=== PATIENT | female | born 2000 | race Hispanic/Latino ===

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

== ENCOUNTER 2022-01-30 22:54 | Emergency (ER) | payer BC, OTHER ==
[~2022-01-30] VITALS: Ht 154.9 cm; Wt 47.2 kg
[2022-01-31 01:18] LABS: BASOPHILS % (AUTO) 0.3 % (0.0-5.0); EOSINOPHILS % (AUTO) 0.9 % (0.0-8.0); HEMATOCRIT 40.3 % (36-48); LYMPHOCYTES % (AUTO) 36.2 % (21.0-51.0); MEAN CORPUSCULAR HEMOGLOBIN 31.3 pg (27.0-33.0); MEAN CORPUSCULAR VOLUME 89.4 fL (80-100); MONOCYTES % (AUTO) 8.9 % (3.0-13.0); NEUTROPHILS % (AUTO) 53.4 % (40.0-77.0); PLATELET COUNT (AUTO) 234 K/uL (130-400); RED BLOOD CELL COUNT(AUTO) 4.51 MIL/uL (4.00-5.50); WHITE BLOOD COUNT (AUTO) 6.5 K/uL (4.8-10.8)
[2022-01-31 01:36] LABS: CREATININE 0.8 mg/dL (0.5-1.5); POTASSIUM 4.1 mmol/L (3.5-5.1)
[2022-01-31 01:41] LABS: ALBUMIN 3.8 g/dL (3.5-5.0); BILIRUBIN,TOTAL 0.3 mg/dL (0.2-1.0); TOTAL PROTEIN, SERUM 7.4 g/dL (6.0-8.3)
[2022-01-31] MEDS ORDERED: IBUPROFEN 600 MG TABLET PO ONE (02:00)
[2022-01-31] MEDS ORDERED: SOLU-MEDROL 125MG VIAL IM ONE (02:00)
[2022-01-31] MEDS ORDERED: DEXAMETHASONE SOD PHOSPHATE 10MG/ML 1ML VIAL ONE (02:22)
[2022-01-31] MEDS ORDERED: NAPR500T6 PO (02:35)
[2022-01-31 02:51] VITALS: BP 110/68
== END 2022-01-31 02:53 | disposition home or self-care (01) ==
LOC: EDH 22:54
DX: R09.1 Pleurisy (principal); F17.200 Nicotine dependence, unspecified, uncomplicated
CPT/HCPCS: 36415; 71045; 80053; 81025; 84484; 85025; 93005; 99285; J1100; J2930